=== PATIENT | female | born 1990 | race Two or more races ===

== ENCOUNTER → 2019-03-25 | Outpatient (CLI) | payer OTHER | END | disposition home or self-care (01) | LOC: PRENATAL 15:29 | DX: O28.1 Abnormal biochemical finding on antenatal screening of mother (principal); O99.212 Obesity complicating pregnancy, second trimester; O35.3XX0 Maternal care for (suspected) damage to fetus from viral disease in mother, not applicable or unspecified ==

== ENCOUNTER 2019-04-28 20:39 | Outpatient (CLI) | payer OTHER | END 2019-04-29 15:40 | disposition home or self-care (01) | LOC: OBS/DEL 20:39 | DX: O26.892 Other specified pregnancy related conditions, second trimester (principal); R10.2 Pelvic and perineal pain ==

== ENCOUNTER → 2019-05-30 | Outpatient (CLI) | payer OTHER | END | disposition home or self-care (01) | LOC: PRENATAL 08:00 | DX: O26.843 Uterine size-date discrepancy, third trimester (principal); O34.211 Maternal care for low transverse scar from previous cesarean delivery; O99.213 Obesity complicating pregnancy, third trimester; O26.893 Other specified pregnancy related conditions, third trimester; O44.03 Complete placenta previa NOS or without hemorrhage, third trimester ==

== ENCOUNTER → 2019-07-15 | Outpatient (CLI) | payer OTHER | END | disposition home or self-care (01) | LOC: PRENATAL 08:30 | DX: O26.843 Uterine size-date discrepancy, third trimester (principal); O36.60X1 Maternal care for excessive fetal growth, unspecified trimester, fetus 1; O34.219 Maternal care for unspecified type scar from previous cesarean delivery; O99.213 Obesity complicating pregnancy, third trimester; Z3A.35 35 weeks gestation of pregnancy; O65.5 Obstructed labor due to abnormality of maternal pelvic organs ==

== ENCOUNTER 2019-08-02 18:24 | Inpatient (IN) | payer OTHER ==
[~2019-08-02] VITALS: Ht 167.6 cm; Wt 3.6 kg
[2019-08-02] MEDS ORDERED: PRENATAL CAPLE1 EAC1 PO (20:09)
== END 2019-08-05 13:46 | disposition home or self-care (01) | DRG 788 ==
LOC: LDR 18:24 → OB/GYN 18:24
PROVIDERS: ADMIT Obstetrics & Gynecology
PROC: 4A1HXFZ Monitoring of Products of Conception, Cardiac Rhythm, External Approach (ICD-10-PCS; 2019-08-02)
PROC: 4A033R1 Measurement of Arterial Saturation, Peripheral, Percutaneous Approach (ICD-10-PCS; 2019-08-02)
PROC: 10D00Z1 Extraction of Products of Conception, Low, Open Approach (ICD-10-PCS; principal; 2019-08-02 18:00)
DX: O34.211 Maternal care for low transverse scar from previous cesarean delivery (principal); Z3A.37 37 weeks gestation of pregnancy; Z37.0 Single live birth